=== PATIENT | male | born 1945 | race Caucasian/White ===

== ENCOUNTER 2024-10-07 06:26 | Day surgery (SDC) | payer MEDICARE, OTHER ==
[~2024-10-07] VITALS: Ht 167.6 cm; Wt 75.5 kg
[2024-10-07] MEDS ORDERED: SODIUM CHLORIDE 0.9% 1,000 ML ONE (07:01)
[2024-10-07] MEDS: SODIUM CHLORIDE 0.9% 1,000 ML IV ONE (07:49)
[2024-10-07] MEDS ORDERED: PRAV10TA37 PO (07:56)
[2024-10-07] MEDS ORDERED: MONT-40 PO (07:56)
[2024-10-07] MEDS ORDERED: LISI20TA24 PO (07:56)
[2024-10-07] MEDS ORDERED: FAMO20 PO (07:56)
[2024-10-07] MEDS ORDERED: RIFA300C62 PO (07:56)
[2024-10-07] MEDS ORDERED: MIDAZOLAM HCL 2 MG/2 ML VIAL ONE (08:09)
[2024-10-07] MEDS ORDERED: FentaNYL CITRATE PF 100 MCG/2 ML VIAL ONE (08:09)
[2024-10-07 09:20] VITALS: PULSE 67; RESP 18; O2SAT 100
[2024-10-07] MEDS ORDERED: LIDOCAINE 4% 50 ML SOLUTION ONE (12:00)
[2024-10-07] MEDS ORDERED: ALBUTEROL SULFATE 2.5 MG/0.5 ML NEB SOLUTION NEB ONE (12:00)
[2024-10-07] MEDS ORDERED: LIDOCAINE 2% 11 ML JELLY ONE (12:00)
[2024-10-07] MEDS ORDERED: BENZOCAINE 20% 50 MCG/SPRAY 57 GM ONE (12:00)
== END 2024-10-07 15:05 | disposition home or self-care (01) ==
LOC: SURGERY 06:26
PROVIDERS: ATTEND Internal Medicine Critical Care Medicine
DX: R05.3 Chronic cough (principal); J38.4 Edema of larynx; I10 Essential (primary) hypertension; B37.0 Candidal stomatitis; Z90.49 Acquired absence of other specified parts of digestive tract; Z86.11 Personal history of tuberculosis; Z79.899 Other long term (current) drug therapy; Z98.890 Other specified postprocedural states
CPT/HCPCS: 31623; 87206; 87101; 87220; 87070; 88108; 31624; 71045; 87015; J3010; J2250; J2919; J7030; J7613; Z7610